=== PATIENT | female | born 1975 | race Hispanic/Latino ===

== ENCOUNTER → 2024-12-07 | Day surgery (SDC) | payer OTHER ==
[~2024-12-07] MED LIST: ESMOLOL HCL 100MG/10ML 10 MG/ML VIAL ONE; FENOFIBRATE145 MG PO; FENTANYL CITRATE/PF 100MCG/2 ML INJ ONE; GLUCAGON FOR INJ 1 MG VIAL ONE; HYOSCYAMINE SULFATE 0.5 MG/ML INJ ONE; LIDOCAINE HCL 2% LOCAL INJ 5 ML SDV VIAL INJ ONE; OZEMPIC2 MG/0.75 SC; PROPOFOL IV EMULSION 10 MG/ML 20 ML VIAL ONE; PROPOFOL IV EMULSION 50 ML IV ONE
[2024-12-07] MEDS: LACTATED RINGER'S 1,000 ML ONE (13:27)
[2024-12-07 15:30] VITALS: BP 125/79; PULSE 98; RESP 16; TEMP 97.1; O2SAT 99
== END | disposition home or self-care (01) ==
LOC: OR 12:46
PROVIDERS: ATTEND Internal Medicine Gastroenterology
DX: K59.09 Other constipation (principal); D12.4 Benign neoplasm of descending colon; K21.9 Gastro-esophageal reflux disease without esophagitis; K64.8 Other hemorrhoids; R12 Heartburn; Z71.3 Dietary counseling and surveillance; E11.9 Type 2 diabetes mellitus without complications; R03.0 Elevated blood-pressure reading, without diagnosis of hypertension; Z71.89 Other specified counseling; E78.5 Hyperlipidemia, unspecified; Z01.810 Encounter for preprocedural cardiovascular examination; Z79.85 Long-term (current) use of injectable non-insulin antidiabetic drugs; Z79.899 Other long term (current) drug therapy; Z68.31 Body mass index [BMI] 31.0-31.9, adult
CPT/HCPCS: 36415; 45385; 81025; 82948; 93005; J1610; J1980; J2003; J2470; J2704; J3010; J7121; 45378